=== PATIENT | male | born 1990 | race Caucasian/White ===

== ENCOUNTER 2020-08-25 10:36 | Outpatient (CLI) | payer OTHER, BC, SELFPAY ==
[2020-08-26 12:21] LABS: COVID-19 RT-PCR UVMMC Result Positive (Negative)
== END 2020-08-25 10:37 | disposition home or self-care (01) ==
LOC: LBO 10:43
PROVIDERS: PCP Nurse Practitioner Family; Visit Provider Nurse Practitioner Family
DX: Z20.822 Contact with and (suspected) exposure to COVID-19 (principal)
CPT/HCPCS: U0003

== ENCOUNTER 2021-12-12 03:26 | Outpatient (CLI) | payer BC, SELFPAY ==
[2021-12-12 16:30] LABS: Abs Immature Grans 0.03 10^3/uL (0.0-0.06); Absolute Basophil Count 0.05 10^3/uL (0.0-0.2); Absolute Eosinophil Count 0.22 10^3/uL (0.0-0.7); Absolute Monocyte Count 0.69 10^3/uL (0.1-0.8); Absolute Neutrophil Count 4.96 10^3/uL (1.2-6.7); Basophils % 0.5; Eosinophils % 2.4; HCT 39.6 % (40.0-50.0); HGB 13.7 g/dL (13.5-17.5); Immature Grans % 0.3; Lymphocytes % 36.4; MCH 30.3 pg (27.0-33.0); MCHC 34.6 % (32.0-36.0); MCV 88 fL (80-95); MPV 9.5 fL (8.0-11.0); Monocytes % 7.4; Platelet Count 254 10^3/uL (130-400); RBC 4.52 10^6/uL (4.36-5.78); RDW 11.8 % (11.8-14.1); WBC 9.35 10^3/uL (4.4-10.8)
[2021-12-12 17:28] LABS: ALT 37 U/L (16-63); AST 24 U/L (15-37); Albumin 4.1 g/dL (3.4-5.0); Alkaline Phosphatase 70 U/L (46-116); Anion Gap 7.7 mmol/L (3-11); BUN 22 mg/dL (7-18); Bilirubin, Total 0.3 mg/dL (0.2-1.0); CO2 31.3 mmol/L (21.0-32.0); CREATININE 1.2 mg/dL (0.70-1.30); Calcium 9.8 mg/dL (8.5-10.1); Chloride 105 mmol/L (98-107); Glucose 104 mg/dL (74-106); LDH 165 U/L (85-227); Potassium 4.2 mmol/L (3.5-5.1); Sodium 144 mmol/L (136-145); Total Protein 7.3 g/dL (6.4-8.2)
[2021-12-14 09:28] LABS: HIV-1/2 Ag & Ab Screen Negative (Negative)
== END 2021-12-12 03:27 | disposition home or self-care (01) ==
LOC: LBO 03:26
PROVIDERS: PCP Nurse Practitioner Family; Visit Provider Family Medicine
DX: R19.09 Other intra-abdominal and pelvic swelling, mass and lump (principal); Z11.4 Encounter for screening for human immunodeficiency virus [HIV]
CPT/HCPCS: 36415; 80053; 87389; 83615; 85025

== ENCOUNTER → 2022-03-13 02:07 | Outpatient (CLI) | payer BC, SELFPAY ==
--- NOTE | 2022-03-13 06:30 | DI.CT_ITS ---
Exam(s) CT ABDOMEN PELVIS W EXAM: CT ABDOMEN PELVIS W CLINICAL HISTORY: Lymphadenopathy seen previously,resolved on exa TECHNIQUE: Imaging Protocol: Axial computed tomography images with coronal and sagittal reformatted images were created and reviewed CONTRAST MATERIAL: Intravenous: Omnipaque 350 Contrast volume:100 mL Oral: Yes COMPARISON: CT CT ABDOMEN PELVIS WO from 12/04/2021 FINDINGS: ABDOMEN: Lung Bases: Normal where visualized. Liver: Normal density. No measurable mass. Portal, Superior Mesenteric, and Splenic Veins: Unremarkable. Gallbladder and Biliary Tract: No radiodense calculus or dilation. Pancreas: Normal density, no abnormal calcifications or inflammatory process. Spleen: Normal. Adrenals: No masses seen. Kidneys: Normal size, contour and axis. No radiodense stones or obstructive uropathy. No masses seen. Abdominal Aorta: Abdominal portion non-dilated. Bowel: No obstruction or bowel wall thickening. Appendix is unremarkable. Peritoneal Cavity: No ascites, collection or mesenteric inflammatory response. No free air. Lymph Nodes: The enlarged left inguinal and external iliac lymph nodes have decreased in size. No si gnificant lymphadenopathy is appreciated. The infiltration in the soft tissues in the left inguinal region has resolved. Bones: Within normal limits for the patient's age. Soft Tissues: There is a small fat containing left inguinal hernia. PELVIS: Bladder: Symmetric distention, no gross wall thickening. Reproductive Organs: Unremarkable as visualized. Lymph Nodes: Within normal limits. Bones: Within normal limits for the patient's age. IMPRESSION: 1. Resolution of the left external iliac and inguinal adenopathy and soft tissue infiltration in the left inguinal region. 2. No acute abdominal pelvic process. RADIATION DOSE DELIVERED: 1,242.48mGy.cm Total DLP DATA REPOSITORY: All CT scans at this facility are submitted to the National Radiology Data Registry (NRDR) Dose Index Registry (DIR) with the [employer] [place] [employer] (ACR). RADIATION OPTIMIZATION: All CT scans at this facility use at least one of these dose optimization te chniques: automated exposure control; mA and/or kV adjustment per patient size (includes targeted exa ms where dose is matched to clinical indication); or iterative reconstruction.
[2022-03-13] MEDS: Barium Sulfate 2% W/V-Berry Smoothie 450 ML BTL PO ×2 (07:33)
[2022-03-13] MEDS: Omnipaque 350 MG/ML 500 ML BTL-Imaging package IJ (09:37)
[2022-03-13] MEDS: Normal Saline Flush 10 ML SYR IVP (09:56)
== END ==
PROVIDERS: PCP Nurse Practitioner Family; Visit Provider Family Medicine
DX: R19.09 Other intra-abdominal and pelvic swelling, mass and lump (principal); R59.0 Localized enlarged lymph nodes; M79.89 Other specified soft tissue disorders
CPT/HCPCS: 74177

== ENCOUNTER 2022-07-05 07:50 | Day surgery (SDC) | payer BC, SELFPAY ==
--- NOTE | 2022-07-04 19:59 | W.PM.DSUDISC ---
Date of service: 07/05/22 Time of Service: 10:46 Discharge Plan Disposition Patient Disposition: Home Condition: Good Discharge Details Reason For Visit: Left inguinal hernia repair Attending Provider: Luca Caban Primary Care Provider: Jenelle Eckert Home Meds and New Rx's Prescriptions: New tramadol 50 mg tablet 50 mg PO Q8H PRN (Reason: pain) Qty: 12 0RF Rx Instructions: Take 1 tablet by mouth up to every 8 hours as needed for severe pain. Do not drive while using this medication. Continued sertraline 25 mg tablet 37.5 mg PO DAILY Qty: 135 3RF Hold Instructions: Home Medication placed on hold at Doctor's office sildenafil [Viagra] 25 mg tablet 25 mg PO ONCE PRN (Reason: sexual activity) Qty: 6 10RF Rx Instructions: Take 30 minutes to 4 hours before activity Fish Oil 300 MG capsule 300 mg PO DAILY multivitamin [Men's Multi-Vitamin] 1 EACH tablet 1 ea PO DAILY Discharge Instructions Instructions: Inguinal Hernia Repair (GEN) Additional Instructions: Michael, we were able to fix your inguinal hernia today without any difficulty. The operation went very smoothly. As we talked about beforehand, you will have some pain afterwards. I provided a prescription for tramadol to help with that if the ibuprofen and Tylenol are insufficient. Ice packs and heating pads will also help quite a bit. You should try to get up and move around a little more each day. Walking will be a great exercise for the next few days. 1. Resume all of your medications. 2. Okay to use tylenol and ibuprofen over the counter as needed. Use tramadol as needed for pain. 3. Leave bandage in place for 24 hours, then remove. 4. Shower with warm soapy water. Pat dry. Use a bandaid if needed to protect your clothing. 5. No soaking or tub baths until I see you in the office. 6. No heavy lifting until I see you in the office. 7.Call the office (or go directly to the emergency room after hours) if you notice any of the following: Develop chills (warm to touch), or if you have a thermometer and your temperature is above 101 Difficulty breathing or difficultly swallowing Persistent vomiting Any bleeding ? exceeding one tablespoon 8. Call your physician if the site where your intravenous was started becomes red, swollen, painful, and warm to touch. Referrals: Luca Caban MD [ [facility] STAFF PHYSICIAN] - (Routine postoperative visit on July 17 at 1:30 PM) Activity:: no heavy lifting Remove Dressings/Wound Care:: 24 hours Shower/Bathe:: 24 hours Diet:: As Tolerated Discharge Orders Discharge Orders: Discharge Order (Routine); Ordered 07/04/22 Ordered By: Luca Caban DS: Diagnosis Discharge Diagnosis (1) Incarcerated inguinal hernia: Status: Acute Asessment and Plan: Routine follow-up in the office for postsurgical visit
--- NOTE | 2022-07-04 20:02 | ROE_ITS ---
Date of service: 07/05/22 Time of Service: 10:59 Operative Note Operative Note DATE OF PROCEDURE: 07/05/22 PRE-OP DIAGNOSIS: Left inguinal hernia POST-OP DIAGNOSIS: same PROCEDURE: Left inguinal herniorraphy with mesh SURGEON: Luca Caban LEARNING AND DEVELOPMENT CONSULTANT: Debo Rincon ANESTHESIA TYPE: Local By Surgeon and General LMA/ETT Refer to Anesthesia Record ESTIMATED BLOOD LOSS: 25 PATHOLOGY: none sent COMPLICATIONS: None Patient was transported to: PACU Patient's condition: stable Implants: Bard PerFix light plug Indications: Michael is a 31 year old male with a painful left inguinal hernia Findings: Left-sided indirect inguinal hernia Procedure Description: I began by confirming the correct site with the patient. Next, general anesthesia was induced, and their service provided a left-sided ultrasound- guided tap block. The surgical site was then prepped and draped in the usual fashion. I began by making an oblique incision over the left inguinal region. I dissected down through the skin to the deep fascia. Next, I incised the fascia along the length of the inguinal canal to the external ring. I then carefully identified the ilioinguinal nerve. Once this was complete, I bluntly dissected the shelving edge of the inguinal ligament down towards the pubic tubercle. Here, I encircled all cord structures with a [place] drain. Next, I began dissecting the specific cord structures. Great care was taken to spare the vas deferens and the blood supply to the testicle. Next, I isolated the hernia sac from the other inguinal structures. I reduced it back to its normal anatomic position. I then used a PerFix light mesh plug to obliterate the defect at the internal ring. I fixed in place with interrupted Prolene stitches. Next, I buttressed the posterior floor of the inguinal canal with a large mesh patch. I started by fixing it to the pubic tubercle. Next, I used Prolene sutures to affix it to the shelving edge of the inguinal ligament and the conjoined tendon. Laterally I tacked it to the abdominal oblique and reconstructed an internal ring without any strain on the cord structures. Once this was complete, I irrigated the surgical field. It appeared hemostatic. I then closed the anterior portion of the fascia to reconstruct the front wall of the inguinal canal. I did this with interrupted Vicryl stitches. Once again, I irrigated the surgical field and inspected for hemostasis. Finally, I approximated the superficial fascia and the deep layers of the skin with absorbable suture. Skin was closed with running absorbable suture. Bandages w ere applied, the patient was awakened and transferred to the recovery unit.
[2022-07-05] VITALS (9 sets, daily range): BP systolic 95–133; BP diastolic 50–89; PULSE 50–76; RESP 12–16; TEMP 36–36.4; O2SAT 97–99; BMI 32.8
--- NOTE | 2022-07-05 08:26 | ANES.PREOP_ITS ---
General Info Date of Service Date Performed: 07/05/22 Height: 5 ft 10.5 in Weight: 105.5 kg Body Mass Index (BMI): 32.8 Surgical Procedure: Operation Date: 07/05/22 09:25 Proposed Procedure Side Surgeon p Herniorrhaphy Inguinal w/Mesh Left Luca Caban MD Meds Allergies and Home Medications Allergies Allergy/AdvReac Type Severity Reaction Status Date / Time methylphenidate HCl AdvReac Unknown Verified 07/05/22 08:08 [From Ritalin] paroxetine HCl [From Paxil] AdvReac Unknown Verified 07/05/22 08:08 Home Medication Medication Instructions Recorded multivitamin (Men's Multi-Vitamin 1 ea PO DAILY 12/09/13 tablet) omega-3 fatty acids 300 mg capsule 300 mg PO DAILY 12/09/13 (Fish Oil) sertraline 25 mg tablet 37.5 mg PO DAILY #135 tab-caps 09/14/21 sildenafil 25 mg tablet (Viagra) 25 mg PO ONCE PRN sexual activity 09/14/21 #6 tab-caps tramadol 50 mg tablet 50 mg PO Q8H PRN pain #12 tabs 07/05/22 Current Visit Medications: Current Medications Generic Name Dose Route Start Last Admin Trade Name Freq PRN Reason Stop Dose Admin Acetaminophen 1,000 mg 07/05/22 06:00 Acetaminophen 500 Mg Tab PO 08/04/22 23:59 PREOP DEBI Celecoxib 200 mg 07/05/22 06:00 Celecoxib 200 Mg Cap PO 08/04/22 23:59 PREOP DEBI Gabapentin 600 mg 07/05/22 06:00 Gabapentin 300 Mg Cap PO 07/05/22 23:59 PREOP DEBI Ringer's Solution 1,000 mls @ 80 mls/hr 07/05/22 06:00 IV 07/05/22 23:59 INFUSION DEBI Cefazolin Sodium/Dextrose 2 gm in 50 mls @ 100 mls/hr 07/05/22 06:00 Ancef Duplex IVPB 07/05/22 23:59 PREOP DEBI IV Miscellaneous Supplies 1 each 07/05/22 06:00 Iv Access IV 07/05/22 23:59 DIRECTED DEBI Morphine Sulfate 2 mg 07/04/22 20:04 Morphine 4 Mg/Ml Syr IVP Q1H PRN PRN Sodium Chloride 0 ml 07/05/22 06:00 Normal Saline Flush 10 Ml Syr IV 07/05/22 23:59 PRN PRN Sodium Chloride 0 ml 07/05/22 06:00 Normal Saline 10 Ml Vial IJ 07/05/22 23:59 DIRECTED PRN Sterile Water 0 ml 07/05/22 06:00 Water,Injection,Sterile 10 Ml Vial IJ 07/05/22 23:59 DIRECTED PRN Tramadol HCl 100 mg 07/04/22 20:04 Tramadol 50 Mg Tab PO Q6H PRN PRN Pain PFSH Active Problems Active Problems: Problem Status Onset Code Left groin mass R19.09 Incarcerated inguinal hernia K40.30 Medical History Medical History Anxiety (01/05/15) Depression Low back pain OCD (obsessive compulsive disorder) Diagnosed with Severe OCD in 2nd/3rd grade; treated with Depakote; was very hyper; stopped medication from 7th grade until 20yo when went back on medication (not Depakote though) Surgical History Surgical History [place] tooth extraction Tobacco Smoking/Tobacco Use Status: Never Passive smoking exposure: No Alcohol Alcohol Intake: current Alcohol intake frequency: a few times a week Alcohol type: beer Substance Use Substance use: Never Substance use type: does not use Vital Signs and Lab Results Vital Signs Most Recent Vital Signs in EMR: Most Recent Vital Signs Temp Pulse Resp BP Pulse Ox 36 C L 76 16 133/89 98 07/05/22 07:50 07/05/22 07:50 07/05/22 07:50 07/05/22 07:50 07/05/22 07:50 Lab Results Blood Type / Crossmatch: No Data to Display Complete Blood Count: No Data to Display Complete Metabolic Panel: No Data to Display Liver Function Panel: No Data to Display Coagulation Panel: No Data to Display Cardiac Panel: No Data to Display Arterial Blood Gas: No Data to Display Venous Blood Gas: No Data to Display Pancreas Panel: No Data to Display Thyroid Panel: No Data to Display Infectious Disease: No Data to Display Blood Cultures: No Data to Display Toxicology Panel: No Data to Display Anesthesia Assessment and Plan Anesthesia History Personal History: No History of Anesthesia Complications Family History: No Family History of Anesthesia Complications Exercise Tolerance Exercise Tolerance: Metabolic Equivalents>4 Pertinent Negatives Pertinent Negatives: No Symptoms of GERD Cardiac & Pulmonary Exam Cardiac Exam: Normal S1/S2 Heart Sounds Pulmonary Exam: Clear Bilateral Breath Sounds Implantable Cardiac Device Does patient have a Pacemaker or an ICD?: No Airway Exam Known Difficult Airway: No Mallampati Class: 2 Mouth Opening: Normal (> 3cm) Thyromental Distance: Greater than 3 cm Neck Range of Motion: Full ROM Neck Circumference: Normal Teeth Condition: Normal Dentition ASA Classification ASA Score: ASA 2 Emergency Case?: No NPO Status NPO Status: NPO Clears >2 hours, Solids >8 hours Anesthesia Plan Resuscitation Status: Full Code Anesthesia Technique: General Anesthesia Airway Planned: LMA Pain Management: Surgeon and patient request nerve block Monitors Used: Standard Monitors
[2022-07-05] MEDS: Lactated Ringers 1,000 ML 80 ML IV ×2 (08:37→08:41)
[2022-07-05] MEDS: Gabapentin 300 MG CAP 600 MG PO (08:40)
[2022-07-05] MEDS: Celecoxib 200 MG CAP PO (08:40)
[2022-07-05] MEDS: Acetaminophen 500 MG TAB 1000 MG PO (08:41)
[2022-07-05] MEDS: ceFAZolin 2 GM/50 ML BAG IVPB (09:41)
[2022-07-05] MEDS: Bupivacaine 0.25% Pres-Free W/EPI 30 ML VIAL (09:58)
--- NOTE | 2022-07-05 12:31 | W.ANESNERVE ---
Nerve Block Single Injection Procedure Date and Time Date Performed: 07/05/22 Procedure Start: 09:35 Location Where Procedure Performed Procedure Location: Operating Room Procedure Stop: 09:41 Reason Performed: Postoperative Analgesia Requesting Provider: Luca Caban Timeout Performed Timeout Performed: Yes Monitoring Used ECG, Blood Pressure, SpO2 and ETCO2 Sterility Sterility: Hand Hygiene, Surgical Cap, Surgical Mask, Sterile Gloves and Chlorhexidine Sedation Given During Procedure Sedation Given (Indicate Dose Given): No Sedation given Patient Mental Status Patient Mental Status: Performed under general anesthesia Nerve Block 1st Nerve Block: Laterality: Left Block Type: TAP Unilateral Ultrasound Image Saved?: Yes Needle / Catheter Used: 100mm SonoPlex II Local Anesthetic Bolus (Indicate Dose Given): Injected in 3-5ml increments after negative blood aspiration and Bupivacaine 0.25% Dose:: 30 ml Additives (Indicate Dose Given): None Ultrasound: Sterile probe cover and gel used Nerve Stimulator: Not Used Paresthesia: None Procedure Tolerated: No Complications and Patient tolerated well Procedure Outcome: Successful Performed By: Ramirez Navarro
--- NOTE | 2022-07-05 12:59 | W.ANESPOSTOP ---
Postoperative Evaluation Date, Time and Location Date Performed: 07/05/22 Time Performed: 12:59 Patient Location: Day Surgery Unit Vital Signs Most Recent Imported Vital Signs: Most Recent Vital Signs Temp Pulse Resp BP Pulse Ox 36.3 C L 50 L 16 117/65 99 07/05/22 12:18 07/05/22 12:18 07/05/22 12:18 07/05/22 12:18 07/05/22 12:18 Pain Score Most Recent Pain Score: Most Recent Pain Score Pain Level 5 07/05/22 12:18 Assessment Mental Status: Awake (Alert & Oriented to Patient Baseline) Airway and Respiratory Function: Patent airway with normal (patient baseline) respiratory exam Cardiovascular Function: Hemodynamically Stable Hydration Status: Adequately Hydrated Nausea & Vomiting: No Nausea or Vomiting Pain: Pain is tolerable per patient Peripheral Nerve Block: Patient did not receive a nerve block
== END 2022-07-05 13:16 | disposition home or self-care (01) ==
PROVIDERS: PCP Nurse Practitioner Family; Visit Provider Surgery
PROC: (CPT 49507; principal; 2022-07-05 09:15)
DX: K40.30 Unilateral inguinal hernia, with obstruction, without gangrene, not specified as recurrent (principal)
CPT/HCPCS: 49507; 76942; C1781; J0690; J1100; J2250; J2405; J2704; J3010

== ENCOUNTER 2023-11-14 16:09 | Outpatient (CLI) | payer BC, SELFPAY ==
--- OUTSIDE RECORDS SUMMARY | 2023-11-14 16:13 | XMS_ITS | Clinical Summary ---
Author Organization [facility] Address [address] [place] [id number] Care Team Providers Care Assistant Reading Teacher Name Role Phone Unavailable Primary Care Provider Unavailabl e Social History Tobacco Use Types Packs/Day Years Used Date Smoking Tobacco: Never Assessed Sex and Gender Information Value Date Recorded Sex Assigned at Not on file Gender Identity Not on file Sexual Orientation Not on file Plan of Treatment Health Maintenance Due Date Last Done Comments Hepatitis C Screen 1989 Hepatitis B Vaccine (1 of 3 - 19+ 3-dose series) 09/16 COVID-19 Vaccine (2022-24 season) 2023
--- OUTSIDE RECORDS SUMMARY | 2023-11-14 16:13 | XMS_ITS | Referral Summary ---
Author Organization [facility] Address [address] [place] [address] Care Team Providers Care Lieutenant Colonel Name Role Phone Unavailable Primary Care Provider Unavailabl e Social History Tobacco Use Types Packs/Day Years Used Date Smoking Tobacco: Never Assessed Sex and Gender Information Value Date Recorded Sex Assigned at Not on file Gender Identity Not on file Sexual Orientation Not on file Plan of Treatment Not on file
--- OUTSIDE RECORDS SUMMARY | 2023-11-14 16:13 | XMS_ITS | Encounter Summary ---
Author Organization [facility] Address [address] [place] [address] Care Team Providers Care Utilization Engineer Name Role Phone Unavailable Primary Care Provider Unavailabl e Encounter Details Date Type Department Care Team (Late st Contact Info) Description 08/25/2020 Lab Requisition [facility] Pathology & Laboratory Medicine - [facility] [address] [place] [address] Outr Resulting Lab, Provider Social History Tobacco Use Types Packs/Day Years Used Date Smoking Tobacco: Never Assessed Sex and Gender Information Value Date Recorded Sex Assigned at Not on file Gender Identity Not on file Sexual Orientation Not on file documented as of this encounter Plan of Treatment Not on file documented as of this encounter Procedures Procedure Name Priority Date/Time Associated Diagnosis Comments ZZCOVID-19 TEST [facility] PCR Today 08/25/2020 9:10 EDT COVID-19 TESTING Routine 08/25/2020 9:10 EDT documented in this encounter Results * COVID-19 TEST [facility] PCR (08/25/2020 9:10 EDT) Swab ENTIRE NASOPHARYNX / Unknown 08/25/2020 9:10 EDT 08/25/2020 15:53 EDT Provider Outr Resulting Lab MICROBIOLOGY - GENERAL ORDERABLES [facility] [address] [place] [address] * (ABNORMAL) COVID-19 TESTING (08/25/2020 9:10 EDT) COVID-19 rt-PCR Result Positive( AA) Negative 08/26/2020 12:15 EDT [facility] Comment: This test has not been FDA cleared or approved. This test has been authorized by FDA under an EUA for use by authorized laboratories. This test has been authorized only for detection of nucleic acid from 2019-nCoV, not for any other viruses or pathogens. This test is only authorized for the duration of the declaration that circumstances exist justifying the authorization of emergency use of in vitro diagnostic tests for detection and/or diagnosis of 2019-nCoV under section 564(b)(1) of Act, 21 U.S.C ?? 360bbb-3(b) (1), unless the authorization is terminated or revoked sooner. Testing was performed using the marques SARS-CoV-2 assay ([employer] on the Marques 6800 System Performing Lab [facility] [address] [facility] 08/26/2020 12:15 EDT [facility] Swab 08/25/2020 9:10 EDT 08/25/2020 15:53 EDT Provider Outr Resulting Lab MICROBIOLOGY - GENERAL ORDERABLES [facility] [address] [place] [address] documented in this encounter Visit Diagnoses Not on filedocumented in this encounter Additional Health Concerns Infection Onset Date Last Indicated Resolved Time COVID-19 08/25/2020 08/25/2020 09/24/2020 22:1 5 EDT documented as of this encounter
--- OUTSIDE RECORDS SUMMARY | 2023-11-14 16:13 | XMS_ITS | Encounter Summary ---
Author Organization [facility] Address [address] [place] [address] Care Team Providers Care Mathematical Scientist Name Role Phone Unavailable Primary Care Provider Unavailabl e Encounter Details Date Type Department Care Team (Late st Contact Info) Description 12/13/2021 Lab Requisition [facility] Pathology & Laboratory Medicine - [facility] [address] [place] [address] Outr Resulting Lab, Provider Social History Tobacco [...] Procedure Name Priority Date/Time Associated Diagnosis Comments HIV 1/2 ANTIGEN AND ANTIBODY, 4TH GENERATION Routine 12/12/2021 16:10 EDT documented in this encounter Results * HIV 1/2 ANTIGEN AND ANTIBODY, 4TH GENERATION (12/12/2021 16:10 EDT) HIV 1 and 2 Antibody/p24 Antigen, 4th Generation Negative Negative 12/14/2021 9:22 EDT [facility] Comment:If acute HIV-1 infec tion is suspected in a high risk patient, submit plasma specimen for HIV-1 RNA quantitation test. Blood VENOUS BLOOD / Unknown 12/12/2021 16:10 EDT 12/13/2021 17:56 EDT Narrative [facility] - 12/14/2021 9:22 EDT Fourth Generation assay performed on the Siemens Centaur XPT. Provider Outr Resulting Lab IMMUNOLOGY A ND SEROLOGY ORDERABLES [facility] [address] [place] [id number] documented in this encounter Visit Diagnoses Not on filedocumented in this encounter
[2023-11-14 17:32] LABS: ALT 71 U/L (16-63); AST 33 U/L (15-37); Albumin 4.5 g/dL (3.4-5.0); Alkaline Phosphatase 65 U/L (46-116); BUN 23 mg/dL (7-18); Bilirubin, Total 0.48 mg/dL (0.2-1.0); CREATININE 1.2 mg/dL (0.70-1.30); Calculated LDL 132 mg/dL (<100); Chloride 104 mmol/L (98-107); Cholesterol 223 mg/dL (<200); Estimated GFR 81.38 (mL/min/1.73m2); Glucose 95 mg/dL (74-106); HDL Cholesterol 63 mg/dL (40-60); Potassium 3.5 mmol/L (3.5-5.1); Sodium 141 mmol/L (136-145); TSH (W/Ref FT4) 1.77 uIU/mL (0.36-3.74); Total Protein 7.9 g/dL (6.4-8.2); Triglyceride 144 mg/dL (<150)
[2023-11-16 09:50] LABS: HIV-1/2 Ag & Ab Screen Negative (Negative)
[2023-11-17 10:40] LABS: Hepatitis C Ab w Rflx HCV PCR Negative (Negative)
[2023-11-21 15:53] LABS: Testosterone, Free 9.93 ng/dL (4.85-19.0); Testosterone, Total 292 ng/dL (240-950)
== END 2023-11-14 16:10 | disposition home or self-care (01) ==
LOC: LBO 16:12
PROVIDERS: PCP Nurse Practitioner Family; Visit Provider Nurse Practitioner Adult Health
DX: Z13.220 Encounter for screening for lipoid disorders (principal); Z13.1 Encounter for screening for diabetes mellitus; Z11.4 Encounter for screening for human immunodeficiency virus [HIV]; Z11.59 Encounter for screening for other viral diseases; Z13.29 Encounter for screening for other suspected endocrine disorder
CPT/HCPCS: 36415; 80053; 80061; 84402; 84403; 86803; 87389; 84443